=== PATIENT | male | born 1935 | race Caucasian/White ===

== ENCOUNTER 2018-09-27 08:00 | Emergency (ER) | payer OTHER ==
[~2018-09-27] VITALS: Ht 182.9 cm; Wt 81.6 kg
[2018-09-27 08:14] VITALS: Ht 182.9 cm; Wt 81.6 kg
[2018-09-27 08:54] LABS: BASOPHIL % 0.4 % (0-2); PLATELET COUNT 249 x10^3mcL (130-400); RED CELL DISTRIBUTION WIDTH 13.4 % (11.5-14.5)
[2018-09-27 09:10] LABS: CALCIUM 8.7 mg/dL (8.5-10.1); CARBON DIOXIDE 29.1 mmol/L (21-32); CHLORIDE SERUM 103 mmol/L (98-107); GLUCOSE SERUM 128 mg/dL (74-106); POTASSIUM SERUM 4.7 mmol/L (3.5-5.1); SODIUM SERUM 137 mmol/L (136-145)
[2018-09-27] MEDS ORDERED: METFORMIN HCL500 MG PO (09:13)
[2018-09-27] MEDS ORDERED: GLUCOTROL10 MG PO (09:14)
[2018-09-27] MEDS ORDERED: NOR10 PO (09:14)
[2018-09-27 09:15] LABS: ALBUMIN 3.7 g/dL (3.4-5.0); ALKALINE PHOSPHATASE 106 U/L (46-116); ALT/SGPT 34 U/L (16-63); AST/SGOT 31 U/L (15-37); BILIRUBIN TOTAL 0.32 mg/dL (0.20-1.00); TOTAL PROTEIN, SERUM 7.3 g/dL (6.4-8.2)
[2018-09-27] MEDS ORDERED: ARICEPT10 MG PO (09:15)
[2018-09-27] MEDS ORDERED: GOOD SENSE ASPI81 M3 PO (09:15)
[2018-09-27] MEDS ORDERED: MULTI-VITAMINS1 TAB PO (09:16)
[2018-09-27] MEDS ORDERED: NATURE'S BLEN1000 IU PO (09:16)
[2018-09-27] MEDS ORDERED: LOSARTAN POTASS25 M1 PO (09:17)
[2018-09-27] MEDS ORDERED: NAMENDA10 M2 PO (09:17)
[2018-09-27 10:38] VITALS: BP 148/84
== END 2018-09-27 10:38 | disposition home or self-care (01) ==
LOC: ED 08:00
PROVIDERS: Emergency Medicine
DX: S00.91XA Abrasion of unspecified part of head, initial encounter (principal); F03.90 Unspecified dementia, unspecified severity, without behavioral disturbance, psychotic disturbance, mood disturbance, and anxiety; G30.9 Alzheimer's disease, unspecified; E11.22 Type 2 diabetes mellitus with diabetic chronic kidney disease; I12.9 Hypertensive chronic kidney disease with stage 1 through stage 4 chronic kidney disease, or unspecified chronic kidney disease; N18.9 Chronic kidney disease, unspecified; D64.9 Anemia, unspecified; W19.XXXA Unspecified fall, initial encounter; Y93.89 Activity, other specified; Y92.89 Other specified places as the place of occurrence of the external cause; Y99.8 Other external cause status
CPT/HCPCS: 36415; 90715